=== PATIENT | female | born 1955 | race African-American/Black ===

== ENCOUNTER 2019-10-11 19:11 | Inpatient (IN) | payer OTHER ==
[~2019-10-11] VITALS: Ht 152.4 cm; Wt 98.6 kg
[2019-10-11] MEDS ORDERED: ONDANSETRON HCL 4MG/2ML INJ IV STA (19:55)
[2019-10-11] MEDS ORDERED: MORPHINE SULFATE 4 MG/ML CPJ (NOT FOR IM USE) IV STA (19:55)
[2019-10-11] MEDS ORDERED: ASPIRIN 81MG TABLET PO ONE (20:00)
[2019-10-11] MEDS ORDERED: NITROGLYCERIN OINT 1GM/INCH UDPKT TD ONE (20:00)
[2019-10-11 20:46] LABS: BASOPHILS % 1.2 % (0.0-2.0); EOSINOPHILS % 1.2 % (0.0-5.0); HEMATOCRIT. 37.5 % (36.0-48.0); HEMOGLOBIN. 12.9 g/dL (12.0-16.0); LYMPHOCYTES % 33.7 % (20.0-50.0); MEAN CORPUSCULAR HEMOGLOBIN 29.7 pg (28.0-32.0); MEAN CORPUSCULAR VOLUME 86.4 fL (81.0-99.0); MEAN PLATELET VOLUME 9.1 fl (7.4-10.4); MONOCYTES % 4.1 % (2.0-8.0); NEUTROPHILS % 59.8 % (40.0-76.0); PLATELET 260 x1000/uL (130-400); RED BLOOD CELL COUNT 4.34 mill/uL (4.2-5.4); RED CELL DISTRIBUTION WIDTH 13.8 % (11.6-14.6)
[2019-10-11 20:47] LABS: CHLORIDE 105 mEq/L (98-107)
[2019-10-11] MEDS ORDERED: NITROGLYCERIN 0.4MG TABLET SL SL PRN (22:00)
[2019-10-11] MEDS ORDERED: KETOROLAC 15MG/ML VIAL IV PRN (22:00)
[2019-10-11] MEDS ORDERED: IPRATROPIUM/ALBUTEROL 0.5-3(2.5)MG/3ML NEB NEB PRN (22:00)
[2019-10-11] MEDS ORDERED: MAGNESIUM/ALUMINUM HYDROXIDE/SIMETHICONE 30ML UDC PO PRN (22:00)
[2019-10-11] MEDS ORDERED: ACETAMINOPHEN 325MG TABLET PO PRN (22:00)
[2019-10-11] MEDS ORDERED: GUAIFENESIN 200MG/10ML SUGAR FREE UDC PO PRN (22:00)
[2019-10-11] MEDS ORDERED: CLONIDINE 0.1MG TABLET PO PRN (22:00)
[2019-10-11] MEDS ORDERED: ONDANSETRON HCL 4MG/2ML INJ IV PRN (22:00)
[2019-10-11] MEDS ORDERED: ENOXAPARIN 40MG/0.4ML SYR SUBCUT SCH (22:00)
[2019-10-11] MEDS ORDERED: DOCUSATE SODIUM 100MG CAPSULE PO PRN (22:00)
[2019-10-11] MEDS ORDERED: ZOLPIDEM TARTRATE 5MG TABLET PO PRN (22:00)
[2019-10-11] MEDS ORDERED: LORAZEPAM 0.5MG TABLET PO PRN (22:00)
[2019-10-11 22:10] LABS: ETHANOL BLOOD < 10 mg/dL
[2019-10-11 22:13] LABS: LDL CHOLESTEROL 154 mg/dL (5-100)
[2019-10-11 22:15] LABS: HDL CHOLESTEROL 50 mg/dL (40-59)
[2019-10-11 23:15] LABS: CREATINE KINASE 203 IU/L (26-192)
[2019-10-11 23:16] LABS: CREATINE KINASE MB FRACTION < 1.0 ng/mL (0.5-3.6)
[2019-10-11 23:39] VITALS: BP 108/72
[2019-10-11] MEDS: FAMOTIDINE 20MG TABLET PO SCH (23:56)
[2019-10-11] MEDS: ENOXAPARIN 30MG/0.3ML SYR SUBCUT SCH (23:57)
[2019-10-11] MEDS: DILTIAZEM HCL 60MG TABLET PO SCH (23:58)
[2019-10-12] MEDS ORDERED: TRIA1TAB92 PO (00:38)
[2019-10-12] MEDS ORDERED: MULT-1223 PO (00:38)
[2019-10-12 04:00] VITALS: BP 105/61
[2019-10-12] MEDS: DILTIAZEM HCL 60MG TABLET PO SCH ×3 (06:00→19:06)
[2019-10-12 06:29] LABS: CREATINE KINASE 169 IU/L (26-192)
[2019-10-12 06:30] LABS: CREATINE KINASE MB FRACTION < 1.0 ng/mL (0.5-3.6)
[2019-10-12 07:27] LABS: *AMPHETAMINES SCREEN URINE NEGATIVE (NEGATIVE)
[2019-10-12 07:28] LABS: *BARBITURATES SCREEN URINE NEGATIVE (NEGATIVE); *BENZODIAZEPINES SCREEN URINE NEGATIVE (NEGATIVE); METHADONE URINE SCREEN NEGATIVE (NEGATIVE); OPIATES URINE SCREEN PRESUMTIVE POSITIVE (NEGATIVE)
[2019-10-12 07:29] LABS: CANNABINOID URINE SCREEN NEGATIVE (NEGATIVE); PHENCYCLIDINE URINE SCREEN NEGATIVE (NEGATIVE)
[2019-10-12 08:00] VITALS: BP 94/48
[2019-10-12 08:03] LABS: *COCAINE SCREEN URINE NEGATIVE (NEGATIVE)
[2019-10-12] MEDS: FAMOTIDINE 20MG TABLET PO SCH ×2 (09:19→20:49)
[2019-10-12] MEDS: ASPIRIN 325MG EC TABLET PO SCH (09:19)
[2019-10-12] MEDS: ACETAMINOPHEN 325MG TABLET PO PRN ×2 (09:19→21:06)
[2019-10-12] MEDS: ENOXAPARIN 30MG/0.3ML SYR SUBCUT SCH ×2 (09:20→20:51)
[2019-10-12 12:00] VITALS: BP 97/66
[2019-10-12 16:00] VITALS: BP 117/77
[2019-10-12 20:00] VITALS: BP 100/61
[2019-10-13] VITALS: BP 109/63
[2019-10-13 04:00] VITALS: BP 111/66
[2019-10-13 06:00] VITALS: BP 109/61
[2019-10-13] MEDS: DILTIAZEM HCL 60MG TABLET PO SCH ×2 (06:00)
[2019-10-13 08:00] VITALS: BP 132/86
[2019-10-13] MEDS: ASPIRIN 325MG EC TABLET PO SCH (09:53)
[2019-10-13] MEDS: FAMOTIDINE 20MG TABLET PO SCH (09:53)
[2019-10-13] MEDS: ENOXAPARIN 30MG/0.3ML SYR SUBCUT SCH (09:54)
[2019-10-13 11:03] VITALS: BP 132/86
== END 2019-10-13 12:20 | disposition home or self-care (01) | DRG 206 ==
LOC: ER 19:11 → 5WST 20:59 → ENRESERV 21:25
PROVIDERS: ADMIT Internal Medicine; ATTEND Internal Medicine
DX: M94.0 Chondrocostal junction syndrome [Tietze] (principal); I10 Essential (primary) hypertension; Z91.19 Patient's noncompliance with other medical treatment and regimen; Z90.710 Acquired absence of both cervix and uterus
CPT/HCPCS: 36415; 71045; 80053; 80061; 80305; 80320; 82550; 82553; 83036; 83880; 84484; 85025; 93005; 93970; 96374; 99285; J1650; J2270; J2405; G0480